=== PATIENT | female | born 1980 | race Caucasian/White ===

== ENCOUNTER 2017-03-29 15:14 | Emergency (ER) | payer BC ==
[2017-03-29 15:25] VITALS: O2SAT 98
[2017-03-29] MEDS ORDERED: Sodium Chloride 0.9% 1000 ML 1,000 ML IV STA (16:01)
[2017-03-29] MEDS ORDERED: TORAdol 30 mg Injection IV ONE (16:01)
--- NOTE | 2017-03-29 16:01 | ERPHSYRPT ---
- History of Present Illness Time Seen by Provider: 03/29/17 15:56 Source: patient Exam Limitations: no limitations Patient Subjective Stated Complaint: pt here for rash, sob,cough, congestion since last sat, aches all over Triage Nursing Assessment: pt walked in, resp easy,chest clear,has fine red rash to arms and chest,throat red, cough, nondroductive Physician History: Patient is a 36-year-old female complains of cough, fever, body aches, chills, night sweats, pain in her spine, muscle aches, sore throat, and mild rash on her arms that began 6 days ago. She saw [facility] 2 days ago and was told that this was probably influenza and that she needed to take Tylenol and ibuprofen because it was too late to start Tamiflu. She continues to be in distress. Her past medical history is unremarkable. She did not receive an influenza vaccination this year. She states that the one year she got an influenza vaccination she was sick all year. Timing/Duration: day(s) (6), constant, sudden Cough Quality/Degree: severe, dry cough Possible Cause: no prior episodes Modifying Factors: Improves With: coughing, rest Associated Symptoms: fever, chills, cough, muscle aches, nasal congestion, sore throat Allergies/Adverse Reactions: Penicillins Allergy (Verified 03/29/17 15:25) Home Medications: No Home Meds 1 ea DAILY 09/05/11 [History] Hx Tetanus, Diphtheria Vaccination/Date Given: No Hx Influenza Vaccination/Date Given: No Hx Pneumococcal Vaccination/Date Given: No Immunizations Up to Date: Yes - Review of Systems Constitutional: Fever, Chills, Malaise, Night Sweats Eyes: No Symptoms Ears, Nose, & Throat: Nose Congestion, Throat Pain, Hoarse Respiratory: Cough Cardiac: No Chest Pain, No Edema, No Syncope Abdominal/Gastrointestinal: No Abdominal Pain, No Nausea, No Vomiting, No Diarrhea Genitourinary Symptoms: No Dysuria Musculoskeletal: Arthralgias, Myalgias Skin: No Rash Neurological: No Dizziness, No Focal Weakness, No Sensory Changes Psychological: No Symptoms Endocrine: No Symptoms Hematologic/Lymphatic: No Symptoms Immunological/Allergic: No Symptoms All Other Systems: Reviewed and Negative - Past Medical History Pertinent Past Medical History: Yes Neurological History: No Pertinent History ENT History: No Pertinent History Cardiac History: Other Respiratory History: No Pertinent History Endocrine Medical History: No Pertinent History Musculoskeletal History: No Pertinent History GI Medical History: No Pertinent History History: No Pertinent History Psycho-Social History: No Pertinent History Female Reproductive Disorders: No Pertinent History Other Medical History: MVP - Past Surgical History Past Surgical History: No - Social History Smoking Status: Never smoker Exposure to second hand smoke: No Drug Use: none Patient Lives Alone: No - Female History Hx Last Menstrual Period: 2 weeks ago Hx Now: No - Nursing Vital Signs Nursing Vital Signs: Initial Vital Signs Temperature 99.5 F 03/29/17 15:19 Pulse Rate 92 H 03/29/17 15:19 Respiratory Rate 22 03/29/17 15:19 Blood Pressure 137/80 03/29/17 15:19 O2 Sat by Pulse Oximetry 98 03/29/17 15:19 Pain Scale Pain Intensity 5 - Physical Exam General Appearance: moderate distress Eye Exam: PERRL/EOMI, eyes nml inspection Ears, Nose, Throat Exam: pharyngeal erythema Neck Exam: normal inspection, non-tender, supple, full range of motion Respiratory Exam: normal breath sounds, lungs clear, No respiratory distress Cardiovascular Exam: regular rate/rhythm, normal heart sounds Gastrointestinal/Abdomen Exam: soft, No tenderness Pelvic Exam: not done Rectal Exam: not done Back Exam: normal inspection, No CVA tenderness, No vertebral tenderness Extremity Exam: normal inspection, normal range of motion Neurologic Exam: alert, oriented x 3, cooperative, normal mood/affect, sensation nml, No motor deficits Skin Exam: normal color, warm, dry, No rash Lymphatic Exam: No adenopathy SpO2 Interpretation: normal SpO2: 98 Oxygen Delivery: Room Air - Radiology Exams Chest X-ray Interpretation: Reviewed by me, Teleradiologist Report, Infiltrates ( small patchy infiltrates in bilateral upper lobes per Dr Rosales.) Ordered Tests: Active Orders 24 hr Category Date Time Status IV Insertion STAT Care 03/29/17 16:01 Active CHEST 2 VIEWS (PA AND LAT) Stat Exams 03/29/17 16:02 Completed BMP Stat Lab 03/29/17 16:20 Completed CBC W DIFF Stat Lab 03/29/17 16:20 Completed Lactic Acid Stat Lab 03/29/17 16:38 Completed STREP SCREEN-BETA A Stat Lab 03/29/17 16:20 Completed Medication Summary Discontinued Medications Generic Name Dose Route Start Last Admin Trade Name Freq PRN Reason Stop Dose Admin Acetaminophen 1,000 mg 03/29/17 16:03 03/29/17 16:09 Tylenol Extra Strength 500 Mg PO 03/29/17 16:04 1,000 mg STAT STA Administration Acetaminophen Confirm 03/29/17 16:07 Tylenol Extra Strength 500 Mg Administered 03/29/17 16:08 Dose 1,000 mg .ROUTE .STK-MED ONE Sodium Chloride 1,000 mls @ 999 mls/hr 03/29/17 16:01 03/29/17 16:09 Sodium Chloride 0.9% 1000 Ml IV 03/29/17 17:01 999 mls/hr .Q1H1M STA Administration Sodium Chloride Confirm 03/29/17 16:07 Sodium Chloride 0.9% 1000 Ml Administered 03/29/17 16:08 Dose 1,000 mls @ ud .ROUTE .STK-MED ONE Ketorolac Tromethamine 30 mg 03/29/17 16:01 03/29/17 16:09 Toradol 30 Mg Injection IV 03/29/17 16:02 30 mg STAT ONE Administration Ketorolac Tromethamine Confirm 03/29/17 16:07 Toradol 30 Mg Injection Administered 03/29/17 16:08 Dose 30 mg .ROUTE .STK-MED ONE Lab/Rad Data: Laboratory Result Diagrams 03/29/17 16:20 03/29/17 16:20 Laboratory Results 03/29/17 03/29/17 03/29/17 Range/Units 16:38 16:20 16:20 WBC (4.0-10.5) K/mm3 RBC (4.1-5.4) M/mm3 Hgb (12.0-16.0) gm/dl Hct (35-47) % MCV (78-100) fl MCH (26-32) pg MCHC (32-36) g/dl RDW (11.5-14.0) % Plt Count (150-450) K/mm3 MPV (6-9.5) fl Gran % (36.0-66.0) % Lymphocytes % (24.0-44.0) % Monocytes % (0.0-12.0) % Eosinophils % (0.00-5.0) % Basophils % (0.0-0.4) % Basophils # (0-0.4) Sodium 143 (136-145) mEq/L Potassium 3.7 (3.5-5.1) mEq/L Chloride 105 (98-107) mEq/L Carbon Dioxide 30.2 (21-32) mEq/L Anion Gap 11.8 (5-15) MEQ/L BUN 4 L (9-20) mg/dL Creatinine 0.76 (0.55-1.30) mg/dl Estimated GFR > 60 ML/MIN Glucose 112 H (70-110) MG/DL Lactic Acid 1.1 (0.4-2.0) Calcium 8.7 (8.5-10.1) mg/dL Streptococcus Screen POSITIVE (Negative) 03/29/17 Range/Units 16:20 WBC 7.3 (4.0-10.5) K/mm3 RBC 4.49 (4.1-5.4) M/mm3 Hgb 14.2 (12.0-16.0) gm/dl Hct 41.9 (35-47) % MCV 93.3 (78-100) fl MCH 31.6 (26-32) pg MCHC 33.9 (32-36) g/dl RDW 12.8 (11.5-14.0) % Plt Count 209 (150-450) K/mm3 MPV 11.2 H (6-9.5) fl Gran % 82.5 H (36.0-66.0) % Lymphocytes % 9.3 L (24.0-44.0) % Monocytes % 5.6 (0.0-12.0) % Eosinophils % 2.5 (0.00-5.0) % Basophils % 0.1 (0.0-0.4) % Basophils # 0.01 (0-0.4) Sodium (136-145) mEq/L Potassium (3.5-5.1) mEq/L Chloride (98-107) mEq/L Carbon Dioxide (21-32) mEq/L Anion Gap (5-15) MEQ/L BUN (9-20) mg/dL Creatinine (0.55-1.30) mg/dl Estimated GFR ML/MIN Glucose (70-110) MG/DL Lactic Acid (0.4-2.0) Calcium (8.5-10.1) mg/dL Streptococcus Screen (Negative) - Progress Progress: improved Counseled pt/family regarding: lab results, diagnosis, rad results - Departure Time of Disposition: 17:50 Departure Disposition: Home Clinical Impression: Strep pharyngitis Condition: Stable Critical Care Time: No Referrals: DAKOTA SUNG FNP [Primary Care Provider] - Additional Instructions: You have strep pharyngitis. You were given Toradol 30 mg and fluids by IV. You were also given Tylenol 1000 mg orally. Take azithromycin as directed, 2 tablets on day 1 and then 1 tablet daily for days 2 through 5. Take ibuprofen and Tylenol as needed. Follow-up as needed. Prescriptions: Azithromycin 250 mg [Zithromax 250 MG TABLET] 250 mg PO ZPACK #6 tablet
[2017-03-29] MEDS ORDERED: TYLENOL EXTRA STRENGTH 500 MG PO STA (16:03)
[2017-03-29] MEDS ORDERED: TYLENOL EXTRA STRENGTH 500 MG ONE (16:07)
[2017-03-29] MEDS ORDERED: TORAdol 30 mg Injection ONE (16:07)
[2017-03-29] MEDS ORDERED: Sodium Chloride 0.9% 1000 ML 1,000 ML ONE (16:07)
[2017-03-29 16:30] LABS: BASOPHIL % 0.1 % (0.0-0.4); Basophil (Absolute #) 0.01 (0-0.4); Eosinophil % 2.5 % (0.00-5.0); Eosinophil (Absolute #) 0.18 (0-0.5); Granulocytes % 82.5 % (36.0-66.0); Hematocrit 41.9 % (35-47); Hemoglobin 14.2 gm/dl (12.0-16.0); Lymphocyte (Absolute #) 0.68 (1.0-4.6); Lymphocytes % 9.3 % (24.0-44.0); Mean Cell Volume 93.3 fl (78-100); Mean Corpuscular Hemoglobin 31.6 pg (26-32); Mean Corpuscular Hgb Concent. 33.9 g/dl (32-36); Mean Platelet Volume 11.2 fl (6-9.5); Monocyte (Absolute #) 0.41 (0.0-1.3); Monocytes % 5.6 % (0.0-12.0); Platelet Count 209 K/mm3 (150-450); Red Blood Count 4.49 M/mm3 (4.1-5.4); Red Cell Distribution Width 12.8 % (11.5-14.0); White Blood Count 7.3 K/mm3 (4.0-10.5)
[2017-03-29 16:45] LABS: ANION GAP 11.8 MEQ/L (5-15); BLOOD UREA NITROGEN 4 mg/dL (9-20); CHLORIDE 105 mEq/L (98-107); Calcium 8.7 mg/dL (8.5-10.1); Carbon Dioxide 30.2 mEq/L (21-32); Creatinine 1 0.76 mg/dl (0.55-1.30); EST GLOMERULAR FILTRATION RATE > 60 ML/MIN; Glucose 112 MG/DL (70-110); Potassium 3.7 mEq/L (3.5-5.1); SODIUM 143 mEq/L (136-145)
--- NOTE | 2017-03-29 16:50 | XRAY ---
Indication: Cough. Flulike symptoms. Weakness. Comparison: None PA/lateral chest demonstrates small patchy infiltrates in both upper lobes. Remaining heart, lungs, and bony thorax normal.
[2017-03-29 17:17] VITALS: BP 136/80; PULSE 93
[2017-03-29 18:00] LABS: INFLUENZA A POSITIVE (NEGATIVE); INFLUENZA B NEGATIVE (NEGATIVE); RESPIRATORY SYNCTIAL VIRUS NEGATIVE (Negative)
== END 2017-03-29 18:18 | disposition home or self-care (01) ==
LOC: ED 15:14
DX: J02.0 Streptococcal pharyngitis (principal); R21 Rash and other nonspecific skin eruption; R68.83 Chills (without fever); R53.81 Other malaise; R61 Generalized hyperhidrosis
CPT/HCPCS: 36000; 36415; 71020; 80048; 83605; 85025; 87430; 87631; 96360; 96374; 99284; J1885; A9270-GY